=== PATIENT | female | born 1950 | race Caucasian/White ===

== ENCOUNTER 2019-04-14 07:47 | Inpatient (IN) ==
[~2019-04-14 07:47] MED LIST: Bacitracin 50,000 UNIT, Polymyxin B Sulfate 500,000 UNIT, Sodium Chloride IRRigation 1,... IR ONE
[2019-04-14] MEDS ORDERED: CeFAZolin Syr 2,000MG/20 ML 2,000 MG/20 ML SYRINGE IVPB ONE (08:14)
[2019-04-14] MEDS ORDERED: Ringers Solution, Lactated 1,000 ML IVC SCH (08:15)
[2019-04-14] MEDS ORDERED: Aspirin 81 MG TAB.CHEW PO STA (08:30)
[2019-04-14] MEDS ORDERED: carvediloL 6.25 MG TABLET PO STA (08:30)
[2019-04-14] MEDS ORDERED: *HR* HYDROmorphone (PF) 1 MG/ML SYRINGE IVP PRN (08:39)
[2019-04-14] MEDS ORDERED: *HR* Labetalol 20 MG/4 ML SYRINGE IVP PRN (08:39)
[2019-04-14] MEDS ORDERED: Ondansetron 4 MG/2 ML VIAL IVP ONE (08:39)
[2019-04-14] MEDS ORDERED: Gabapentin 300 MG CAPSULE PO ONE (08:39)
[2019-04-14] MEDS ORDERED: *HR* OxyCODONE Immed Rel 5 MG TABLET PO PRN (08:39)
[2019-04-14] MEDS ORDERED: Acetaminophen IV 1,000 MG/100 ML INFUS..BTL IVPB ONE (08:39)
[2019-04-14] MEDS ORDERED: *HR* Propofol 200 MG/20 ML VIAL IVP ONE (09:48)
[2019-04-14] MEDS ORDERED: *HR* Succinylcholine 200 MG/10 ML VIAL IVP ONE (09:48)
[2019-04-14] MEDS ORDERED: Lidocaine HCL 4 ML Topical Solution (Laryng-O-Jet Kit Sterile Pak) TP ONE (09:48)
[2019-04-14] MEDS ORDERED: *HR* FentaNYL (PF) 100 MCG/2 ML VIAL ONE (09:48)
[2019-04-14] MEDS ORDERED: Ondansetron 4 MG/2 ML VIAL ONE ×2 (09:48→12:24)
[2019-04-14] MEDS ORDERED: Lidocaine -MPF 2% 2 ML VIAL ONE (09:48)
[2019-04-14] MEDS ORDERED: *HR* Rocuronium Bromide 50 MG/5 ML VIAL ONE (09:48)
[2019-04-14] MEDS ORDERED: EPHEDrine 50 MG/ML VIAL ONE (11:46)
[2019-04-14] MEDS ORDERED: Neostigmine Methylsulfate 3 MG/3 ML SYRINGE ONE (12:21)
[2019-04-14] MEDS ORDERED: *HR* HYDROMORPHONE 2 MG/ML VIAL ONE (12:24)
[2019-04-14] MEDS ORDERED: Naloxone 0.4 MG/ML INJ IVP PRN (14:18)
[2019-04-14] MEDS ORDERED: Ondansetron 4 MG/2 ML VIAL IVP PRN (14:18)
[2019-04-14] MEDS ORDERED: Acetaminophen 325 MG TABLET PO PRN (14:18)
[2019-04-14] MEDS ORDERED: Nitroglycerin 0.4 MG TAB.SUBL SL PRN (14:18)
[2019-04-14] MEDS: Ringers Solution, Lactated 1,000 ML IVC SCH (19:39)
[2019-04-14] MEDS: Liraglutide [Victoza 3-Pak] 1.8 MG PO SCH (20:32)
[2019-04-14] MEDS: *HR* OxyCODONE Immed Rel 5 MG TABLET PO PRN (20:35)
[2019-04-14] MEDS: Insulin DETEMIR 100 UNIT/ML X5UNITS SQ SCH (22:17)
[2019-04-15] MEDS: *HR* OxyCODONE Immed Rel 5 MG TABLET PO PRN ×2 (03:01→09:09)
[2019-04-15] MEDS: carvediloL 6.25 MG TABLET PO SCH (09:10)
[2019-04-15] MEDS: Multivit/Ca/Min/Fe/FA 1 TAB TABLET PO SCH (09:10)
[2019-04-15] MEDS: Isosorbide MONOnitrate (24 HR) 30 MG TAB.ER.24H PO SCH (09:10)
[2019-04-15] MEDS: Aspirin Enteric Coated 81 MG Tablet PO SCH (09:10)
[2019-04-15] MEDS: Ringers Solution, Lactated 1,000 ML IVC SCH ×3 (09:11→09:13)
[2019-04-15] MEDS: *HR* HYDROcodone/Acet 5/325 mg TABLET PO PRN (11:37)
[2019-04-15] MEDS ORDERED: Dextrose Gel 15 GM/37.5 ML TUBE PO PRN ×2 (13:08)
[2019-04-15] MEDS ORDERED: *HR* Dextrose 50 % in Water (Syg) 50 ML SYRINGE IVP PRN (13:08)
[2019-04-15] MEDS ORDERED: D5% in Water 1,000 ML IVC PRN (13:08)
[2019-04-15] MEDS: Insulin LISPRO 300 UNITS/3 ML VIAL SQ SCH ×3 (14:57→20:42)
[2019-04-15] MEDS: Liraglutide [Victoza 3-Pak] 1.8 MG PO SCH (20:25)
[2019-04-15] MEDS: Insulin DETEMIR 100 UNIT/ML X5UNITS SQ SCH (20:43)
[2019-04-16] MEDS: *HR* OxyCODONE Immed Rel 5 MG TABLET PO PRN ×2 (04:22→19:40)
[2019-04-16] MEDS: Ringers Solution, Lactated 1,000 ML IVC SCH ×2 (09:36→09:40)
[2019-04-16] MEDS: Aspirin Enteric Coated 81 MG Tablet PO SCH (09:36)
[2019-04-16] MEDS: Multivit/Ca/Min/Fe/FA 1 TAB TABLET PO SCH (09:36)
[2019-04-16] MEDS: Insulin LISPRO 300 UNITS/3 ML VIAL SQ SCH ×4 (09:41→20:45)
[2019-04-16] MEDS: carvediloL 6.25 MG TABLET PO SCH (09:54)
[2019-04-16] MEDS: Isosorbide MONOnitrate (24 HR) 30 MG TAB.ER.24H PO SCH (09:54)
[2019-04-16] MEDS ORDERED: 0.9 % Sodium Chloride 500 ML IV ONE (09:56)
[2019-04-16] MEDS ORDERED: 0.9 % Sodium Chloride 500 ML ONE (09:59)
[2019-04-16] MEDS: *HR* HYDROcodone/Acet 5/325 mg TABLET PO PRN (13:26)
[2019-04-16] MEDS: Insulin DETEMIR 100 UNIT/ML X5UNITS SQ SCH (20:46)
[2019-04-17] MEDS: *HR* OxyCODONE Immed Rel 5 MG TABLET PO PRN ×2 (03:42→16:35)
[2019-04-17] MEDS: Liraglutide [Victoza 3-Pak] 1.8 MG PO SCH (07:31)
[2019-04-17] MEDS: Insulin LISPRO 300 UNITS/3 ML VIAL SQ SCH ×2 (07:50→11:57)
[2019-04-17] MEDS: carvediloL 6.25 MG TABLET PO SCH (07:51)
[2019-04-17] MEDS: Isosorbide MONOnitrate (24 HR) 30 MG TAB.ER.24H PO SCH (07:52)
[2019-04-17] MEDS: Aspirin Enteric Coated 81 MG Tablet PO SCH (07:52)
[2019-04-17] MEDS: Multivit/Ca/Min/Fe/FA 1 TAB TABLET PO SCH (07:52)
[2019-04-17] MEDS: *HR* HYDROcodone/Acet 5/325 mg TABLET PO PRN (08:07)
[2019-04-17 15:58] VITALS: BP 103/64
== END 2019-04-17 16:45 | disposition home health service (06) | DRG 517 ==
LOC: SAMDAY 07:47 → 3ANU 14:21
PROVIDERS: ADMIT Orthopaedic Surgery Orthopaedic Surgery of the Spine; ATTEND Orthopaedic Surgery Orthopaedic Surgery of the Spine